=== PATIENT | female | born 1940 | race Caucasian/White ===

== ENCOUNTER 2018-04-14 14:44 | Observation (INO) | payer MEDICARE ==
[~2018-04-14] VITALS: Ht 160 cm; Wt 52.6 kg
[~2018-04-14 14:44] MED LIST: ALPR0.254 PO; BUPR100T11 PO; HYDR-3237 PO; MULT400C3 PO; OMEP40CA6 PO; VIT1CAPS11 PO
[2018-04-14 15:23] VITALS: BP 106/71
[2018-04-14] MEDS: LACTATED RINGERS 1,000 ML IV SCH (15:39)
[2018-04-14] MEDS ORDERED: MIDAZOLAM 1 MG/ML, 2ML ONE (15:43)
[2018-04-14] MEDS ORDERED: FENTANYL PF 100 MCG/2ML ONE ×2 (15:43→16:35)
[2018-04-14] MEDS ORDERED: BUPIVACAINE/PF 0.5% INJ ONE (18:28)
[2018-04-14] MEDS ORDERED: BUPIVACAINE/PF 0.5% ONE (18:30)
[2018-04-14] MEDS ORDERED: FENTANYL PF 100 MCG/2ML IV PRN (19:00)
[2018-04-14] MEDS ORDERED: LABETALOL 5MG/ML, 20ML IV PRN (19:00)
[2018-04-14] MEDS ORDERED: ACETAMINOPHEN 325 MG TABLET PO PRN (19:00)
[2018-04-14] MEDS ORDERED: MEPERIDINE/PF 25MG/0.5ML IVPush PRN (19:00)
[2018-04-14] MEDS ORDERED: hydrALAzine 20 MG/ML, 1ML IV PRN (19:00)
[2018-04-14] MEDS ORDERED: OXYcodone 5 MG/5 ML ORAL.SOL UDC PO PRN (19:00)
[2018-04-14] MEDS ORDERED: METOCLOPRAMIDE 5 MG/ML, 2ML IV PRN (19:00)
[2018-04-14] MEDS ORDERED: HYDROmorphone 2 MG/ML, 1ML IVPush PRN (19:00)
[2018-04-14] MEDS ORDERED: ROCURONIUM 10 MG/ML,10ML ONE (19:12)
[2018-04-14] MEDS ORDERED: ESMOLOL 100 MG/10 ML ONE (19:12)
[2018-04-14] MEDS ORDERED: CEFAZOLIN 1,000 MG ONE (19:12)
[2018-04-14] MEDS ORDERED: PROPOFOL 10 MG/ML, 20ML ONE (19:12)
[2018-04-14] MEDS ORDERED: NEOSTIGMINE 1 MG/ML, 10ML ONE (19:12)
[2018-04-14] MEDS ORDERED: PHENYLEPHRINE 10 MG/ML ONE (19:12)
[2018-04-14] MEDS ORDERED: GLYCOPYRROLATE 0.2MG/1ML, 5ML ONE (19:12)
[2018-04-14] MEDS ORDERED: ONDANSETRON 2MG/ML, 2ML ONE (19:12)
[2018-04-14] MEDS ORDERED: ONDANSETRON 2MG/ML, 2ML IV PRN (22:00)
[2018-04-14] MEDS ORDERED: PROMETHAZINE 25 MG/ML, 1ML IM PRN (22:00)
[2018-04-14] MEDS ORDERED: HYDROcodone/APAP 7.5-325MG/15ML UDC PO PRN (22:00)
[2018-04-14] MEDS ORDERED: morphine SULFATE 10 MG/ML, 1ML IV PRN (22:00)
[2018-04-14] MEDS ORDERED: HYDROcodone/APAP 5/325 TABLET PO PRN (22:00)
[2018-04-14] MEDS: HYDROcodone/APAP 10/325 MG TABLET PO PRN (22:58)
[2018-04-15 00:31] VITALS: BP 100/51
[2018-04-15] MEDS: LACTATED RINGERS 1,000 ML IV SCH (02:46)
[2018-04-15] MEDS ORDERED: CEFAZOLIN PMX 1GM/50ML 50 ML IV ONE (03:00)
[2018-04-15] MEDS ORDERED: OMEPRAZOLE 20 MG CAPSULE.DR PO SCH (06:00)
[2018-04-15 06:40] VITALS: BP 91/46
[2018-04-15] MEDS ORDERED: BUPROPION 100 MG TABLET PO SCH (09:00)
[2018-04-15] MEDS ORDERED: MULTIVITAMINS WITH IRON TABLET PO SCH (09:00)
[2018-04-15] MEDS: HYDROcodone/APAP 10/325 MG TABLET PO PRN (13:47)
== END 2018-04-15 14:40 | disposition home or self-care (01) ==
LOC: OR 14:44 → 4NOR 21:32 → OR 23:24 → 4NOR 23:25 → DCLOUNGE 04-15 14:24
PROVIDERS: ADMIT Orthopaedic Surgery; ATTEND Orthopaedic Surgery
DX: S52.572A Other intraarticular fracture of lower end of left radius, initial encounter for closed fracture (principal); M19.90 Unspecified osteoarthritis, unspecified site; K21.9 Gastro-esophageal reflux disease without esophagitis; X58.XXXA Exposure to other specified factors, initial encounter; Y93.89 Activity, other specified; Y92.89 Other specified places as the place of occurrence of the external cause; Y99.8 Other external cause status
CPT/HCPCS: 25608; 73110; 76000; 93005; 96365; C1713; G0378; J0690; J2250; J2370; J2405; J2704; J2710; J3010; J3490; J7120

== ENCOUNTER → 2019-11-03 | Outpatient (CLI) | payer MEDICARE ==
[~2019-11-03] MED LIST changes: +GADOTERATE 5 MMOL/10 ML VIAL ONE; +OMEP40CA42 PO; -OMEP40CA6 PO
== END | disposition home or self-care (01) ==
LOC: CFH 11:43
PROVIDERS: ATTEND Surgery
DX: R91.8 Other nonspecific abnormal finding of lung field (principal); J84.10 Pulmonary fibrosis, unspecified; M47.816 Spondylosis without myelopathy or radiculopathy, lumbar region
CPT/HCPCS: 70553; 78815; A9552; A9575

== ENCOUNTER 2019-11-21 07:27 | Outpatient (CLI) | payer MEDICARE ==
[~2019-11-21 07:27] MED LIST changes: -GADOTERATE 5 MMOL/10 ML VIAL ONE
== END 2019-11-21 23:59 | disposition home or self-care (01) ==
LOC: ROC 07:27
PROVIDERS: ATTEND Radiology Radiation Oncology
DX: D49.1 Neoplasm of unspecified behavior of respiratory system (principal)
CPT/HCPCS: G0463

== ENCOUNTER 2019-12-16 09:39 | Day surgery (SDC) | payer MEDICARE ==
[~2019-12-16] VITALS: Ht 157.5 cm; Wt 43.7 kg
[~2019-12-16 09:39] MED LIST changes: +ALBU90AE2 INH
[2019-12-16] MEDS ORDERED: CHLORHEXIDINE 15 ML UDC MM STA (10:02)
[2019-12-16] MEDS ORDERED: LACTATED RINGERS 1,000 ML IV ONE (10:02)
[2019-12-16 10:05] VITALS: BP 113/73
[2019-12-16] MEDS ORDERED: LABETALOL 5MG/ML, 20ML IV PRN (13:30)
[2019-12-16] MEDS ORDERED: ACETAMINOPHEN 325 MG TABLET PO PRN (13:30)
[2019-12-16] MEDS ORDERED: hydrALAzine 20 MG/ML, 1ML IV PRN (13:30)
[2019-12-16] MEDS ORDERED: HYDROmorphone 1 MG/ML, 1ML INJ IVPush PRN (13:30)
[2019-12-16] MEDS ORDERED: ONDANSETRON 2MG/ML, 2ML IVPush PRN (13:30)
[2019-12-16] MEDS: FENTANYL PF 100 MCG/2ML IV PRN ×2 (14:10→14:20)
[2019-12-16] MEDS ORDERED: PROPOFOL 10 MG/ML, 50ML ONE (16:38)
[2019-12-16] MEDS ORDERED: ROCURONIUM 10MG/ML,5ML ONE (16:38)
[2019-12-16] MEDS ORDERED: PROPOFOL 10 MG/ML, 20ML ONE (16:38)
== END 2019-12-16 16:35 | disposition home or self-care (01) ==
LOC: OUT 09:39 → EDSTATUS 11:30 → OUT 16:35
PROVIDERS: ATTEND Internal Medicine
DX: R91.8 Other nonspecific abnormal finding of lung field (principal); J44.9 Chronic obstructive pulmonary disease, unspecified; K21.9 Gastro-esophageal reflux disease without esophagitis; F17.210 Nicotine dependence, cigarettes, uncomplicated; Z79.891 Long term (current) use of opiate analgesic; Z79.899 Other long term (current) drug therapy; Z88.0 Allergy status to penicillin; Z88.2 Allergy status to sulfonamides; Z88.5 Allergy status to narcotic agent
CPT/HCPCS: 31627; 31628; 31632; 36415; 71045; 87070; 87102; 87205; 87635; 88112; 88172; 88173; 88305; 88331; 88332; 93005; J2704; J3010; J7120; 76000

== ENCOUNTER 2020-05-14 08:50 | Outpatient (CLI) | payer MEDICARE | END 2020-05-14 23:59 | disposition home or self-care (01) | LOC: ROC 08:50 | PROVIDERS: ATTEND Radiology Radiation Oncology | DX: C34.12 Malignant neoplasm of upper lobe, left bronchus or lung (principal); D49.1 Neoplasm of unspecified behavior of respiratory system; F17.210 Nicotine dependence, cigarettes, uncomplicated | CPT/HCPCS: G0463 ==

== ENCOUNTER 2020-05-23 12:47 | Outpatient (CLI) | payer MEDICARE | END 2020-05-23 23:59 | disposition home or self-care (01) | LOC: PETCFH 12:47 | PROVIDERS: ATTEND Radiology Radiation Oncology | DX: C34.12 Malignant neoplasm of upper lobe, left bronchus or lung (principal); D49.1 Neoplasm of unspecified behavior of respiratory system; R91.8 Other nonspecific abnormal finding of lung field | CPT/HCPCS: 78815; A9552 ==

== ENCOUNTER 2020-06-27 07:35 | Day surgery (SDC) | payer MEDICARE ==
[~2020-06-27] VITALS: Ht 160 cm; Wt 49.2 kg
[2020-06-27 08:50] VITALS: BP 102/55
[2020-06-27] MEDS ORDERED: FLUMAZENIL 0.1 MG/1 ML, 5ML ONE (09:00)
[2020-06-27] MEDS ORDERED: NALOXONE 1 MG/ML, 2ML ONE (09:00)
[2020-06-27] MEDS ORDERED: MIDAZOLAM 1 MG/ML, 5ML ONE (09:00)
[2020-06-27] MEDS ORDERED: FENTANYL PF 100 MCG/2ML ONE (09:00)
[2020-06-27 09:04] LABS: INTERNATIONAL NORMALIZED RATIO 0.96 (0.93-1.1); PROTHROMBIN TIME 10.3 Seconds (9.6-11.5)
== END 2020-06-27 12:15 | disposition home or self-care (01) ==
LOC: OUT 07:35
PROVIDERS: ATTEND Internal Medicine Hematology & Oncology
DX: R16.0 Hepatomegaly, not elsewhere classified (principal); C34.12 Malignant neoplasm of upper lobe, left bronchus or lung; N18.9 Chronic kidney disease, unspecified; M19.90 Unspecified osteoarthritis, unspecified site; F17.210 Nicotine dependence, cigarettes, uncomplicated; Z20.822 Contact with and (suspected) exposure to COVID-19; Z79.891 Long term (current) use of opiate analgesic; Z79.899 Other long term (current) drug therapy; Z88.2 Allergy status to sulfonamides; Z88.5 Allergy status to narcotic agent; Z98.890 Other specified postprocedural states
CPT/HCPCS: 36415; 47000; 77012; 85610; 88307; 99156; 99157; J2250; J3010; 38222; J2310

== ENCOUNTER 2020-07-18 06:03 | Day surgery (SDC) | payer MEDICARE ==
[~2020-07-18] VITALS: Ht 160 cm; Wt 47.0 kg
[2020-07-18 06:58] VITALS: BP 117/66
[2020-07-18] MEDS ORDERED: SODIUM CHLORIDE 0.9% 1,000 ML IV SCH (07:30)
[2020-07-18] MEDS ORDERED: MELA1TAB46 PO (07:34)
[2020-07-18] MEDS ORDERED: IBUP-1623 PO (07:34)
[2020-07-18 07:42] LABS: INTERNATIONAL NORMALIZED RATIO 0.95 (0.93-1.1); PROTHROMBIN TIME 10.2 Seconds (9.6-11.5)
[2020-07-18] MEDS ORDERED: LIDOCAINE 1%, 10ML ONE (07:42)
[2020-07-18] MEDS ORDERED: FLUMAZENIL 0.1 MG/1 ML, 5ML ONE (08:11)
[2020-07-18] MEDS ORDERED: FENTANYL PF 100 MCG/2ML ONE (08:11)
[2020-07-18] MEDS ORDERED: MIDAZOLAM 1 MG/ML, 5ML ONE (08:11)
[2020-07-18] MEDS ORDERED: NALOXONE 1 MG/ML, 2ML ONE (08:12)
== END 2020-07-18 11:20 | disposition home or self-care (01) ==
LOC: OUT 06:03
PROVIDERS: ATTEND Internal Medicine Hematology & Oncology
DX: C22.8 Malignant neoplasm of liver, primary, unspecified as to type (principal); C34.12 Malignant neoplasm of upper lobe, left bronchus or lung; F17.210 Nicotine dependence, cigarettes, uncomplicated; Z88.0 Allergy status to penicillin; Z88.5 Allergy status to narcotic agent; Z88.8 Allergy status to other drugs, medicaments and biological substances; Z98.890 Other specified postprocedural states; Z79.899 Other long term (current) drug therapy
CPT/HCPCS: 36415; 47000; 77012; 85610; 88307; 88333; 99156; 99157; J2250; J3010; J7030; J2310